=== PATIENT | male | born 1965 | race Caucasian/White ===

== ENCOUNTER 2017-02-10 07:50 | Inpatient (IN) | payer BC ==
[~2017-02-10] VITALS: Ht 180.3 cm; Wt 74.8 kg
--- NOTE | 2017-02-10 07:50 | NUR ---
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 PUT ON HOSPITAL GOWN AND MONITOR. BLOOD SAMPLE SENT TO LAB, EKG DONE, MD AT BEDSIDE.
[2017-02-10 08:15] LABS: BASOPHILS # (AUTO) 0.1 /CMM (0.0-0.2); BASOPHILS % (AUTO) 1.7 % (0.0-2.0); EOSINOPHILS # (AUTO) 0.1 /CMM (0.0-0.7); EOSINOPHILS % (AUTO) 1.3 % (0.0-6.0); HEMATOCRIT 46 % (39-51); HEMOGLOBIN 15.3 g/dL (13.5-17.5); LYMPHOCYTES # (AUTO) 2.2 /CMM (0.8-4.8); LYMPHOCYTES % (AUTO) 30.8 % (20.0-44.0); MEAN CORPUSCULAR HEMOGLOBIN 30 PG (26.0-33.0); MEAN CORPUSCULAR HGB CONC 34 g/dl (31.0-36.0); MEAN CORPUSCULAR VOLUME 89 fL (80-96); MONOCYTES # (AUTO) 0.7 /CMM (0.1-1.30); MONOCYTES % (AUTO) 10.3 % (2.0-12.0); NEUTROPHILS # (AUTO) 3.9 /CMM (1.8-8.9); NEUTROPHILS % (AUTO) 55.9 % (43.0-81.0); PLATELET COUNT (AUTO) 197 /CMM (150-450); RDW COEFFICIENT OF VARIATION 13.6 (11.5-15.0); RED BLOOD CELL COUNT(AUTO) 5.12 MIL/uL (4.5-6.0)
--- NOTE | 2017-02-10 08:15 | NUR ---
XRAY AT BS
[2017-02-10 08:29] LABS: CALCIUM, SERUM 9.1 mg/dL (8.5-10.1); CARBON DIOXIDE 28 mmol/L (21-32); CHLORIDE 103 mmol/L (98-107); CREATININE 1.3 mg/dL (0.6-1.3); GLUCOSE 165 mg/dL (74-106); INR 1.03 (0.87-1.13); POTASSIUM 3.7 mmol/L (3.5-5.1); PROTHROMBIN TIME 10.7 SECS (9.5-12.7); SODIUM SERUM 139 mmol/L (136-145); UREA NITROGEN, BLOOD 20 mg/dL (7-18)
[2017-02-10 08:38] LABS: TROPONIN I < 0.017 ng/mL (0.00-0.056)
[2017-02-10] MEDS ORDERED: ASPI81TA2 PO (08:38)
[2017-02-10] MEDS ORDERED: INSU100V27 SQ (08:38)
[2017-02-10] MEDS ORDERED: ATOR40TA PO (08:38)
[2017-02-10] MEDS ORDERED: INSU100V7 SQ (08:38)
[2017-02-10] MEDS ORDERED: BLOO-668 IN (08:38)
--- NOTE | 2017-02-10 09:56 | NUR ---
REPORT GIVEN TO JULIANNA LIPSCOMB.
--- NOTE | 2017-02-10 10:15 | NUR ---
TELE/CHIEF CONTROLLER RECEIVED PATIENT FROM ER, TRANSFERRED VIA BED. A/O X4. NO SIGNS OF ACUTE DISTRESS. NO COMPLAIN OF PAIN OR DISCOMFORT AT THIS TIME. NOTED INTACT SKIN CONDITION. NO S/S OF EDEMA NOTED. REPORT GIVEN BY ALVERTO LEVINE FROM ER. ALL NEEDS ATTENDED TO AT THIS TIME. CALL LIGHT WITHIN REACH. WILL CONTINUE TO MONITOR TO ENSURE SAFETY.
[2017-02-10 10:30] VITALS: BP 128/72
[2017-02-10 16:00] VITALS: BP 130/76
--- NOTE | 2017-02-10 18:07 | NUR ---
MS/RN CLOSING NOTE PATIENT IN BED IN STABLE CONDITION. A/O X 4. NO SIGNS OF ACUTE DISTRESS. NO COMPLAIN OF PAIN OR DISCOMFORT. ALL NEEDS ATTENDED TO. CALL LIGHT WITHIN REACH. WILL ENDORSE TO NEXT SHIFT FOR CONTINUITY OF CARE.
[2017-02-10 20:00] VITALS: BP 126/76
--- NOTE | 2017-02-10 21:04 | NUR ---
MS RN NOTES PT REQUESTING FOR HIS LANTUS INSULIN. NOTIFIED PT DR. GOYAL HELD HIS INSULIN. CALLED PEPPER DIRECTOR OF EVENT MANAGEMENT CIVIL STRUCTURAL ENGINEER FOR DR GOYAL. VERIFIED WITH HIM RE PT'S LANTUS INSULIN. WITH NEW ORDERS TO CONTINUE HIS LANTUS INSULIN & PT MAY TAKE HIS OWN INSULIN WHILE IN THE HOSPITAL. ORDERS NOTED AND CARRIED OUT. WILL CONTINUE TO MONITOR.
[2017-02-11] VITALS (7 sets, daily range): BP systolic 130–153; BP diastolic 68–89
--- NOTE | 2017-02-11 06:52 | NUR ---
DISTANCE EDUCATION FACULTY LIAISON NOTES AWAKE & RESPONSIVE. NOT IN ANY DISTRESS. NO SOB NOTED. DENIES ANY PAIN OR DISCOMFORT AT THIS TIME. IN TELE SB @ 56 WITH IVF INFUSING WELL. MONITORED ACCORDINGLY. CALL LIGHT WITHIN REACH. BED IN LOWEST POSITION. SITTER AT BEDSIDE. SR UP X2 FOR SAFETY. WILL ENDORSE TO NEXT SHIFT.
--- NOTE | 2017-02-11 07:00 | NUR ---
MANAGER SOURCING NOTES RECEIVED PATIENT IN BED, AWAKE. A/O X4. ON TELE MONITOR SINUS RHYTHM HR 65, APPEARS COMFORTABLE IN BED. DENIES CHEST PAIN. IV NS INFUSING AT 75ML/HR, TOLERATING WELL, NO SOB. CALL LIGHT WITHIN REACH. WILL CONT TO MONITOR.
[2017-02-11 07:30] LABS: BASOPHILS # (AUTO) 0.1 /CMM (0.0-0.2); BASOPHILS % (AUTO) 0.8 % (0.0-2.0); EOSINOPHILS # (AUTO) 0.1 /CMM (0.0-0.7); EOSINOPHILS % (AUTO) 0.8 % (0.0-6.0); HEMATOCRIT 41 % (39-51); HEMOGLOBIN 13.8 g/dL (13.5-17.5); LYMPHOCYTES # (AUTO) 1.1 /CMM (0.8-4.8); MEAN CORPUSCULAR HEMOGLOBIN 30 PG (26.0-33.0); MEAN CORPUSCULAR HGB CONC 34 g/dl (31.0-36.0); MEAN CORPUSCULAR VOLUME 89 fL (80-96); MONOCYTES # (AUTO) 0.7 /CMM (0.1-1.30); MONOCYTES % (AUTO) 8.5 % (2.0-12.0); NEUTROPHILS % (AUTO) 75.9 % (43.0-81.0); PLATELET COUNT (AUTO) 171 /CMM (150-450); RDW COEFFICIENT OF VARIATION 13.5 (11.5-15.0); RED BLOOD CELL COUNT(AUTO) 4.55 MIL/uL (4.5-6.0); WHITE BLOOD COUNT (AUTO) 7.9 K/uL (4.3-11.0)
[2017-02-11 07:56] LABS: CALCIUM, SERUM 8.3 mg/dL (8.5-10.1); CREATININE 1.1 mg/dL (0.6-1.3); MAGNESIUM 1.7 mg/dL (1.8-2.4); PHOSPHORUS 3.2 mg/dL (2.5-4.9); POTASSIUM 4.1 mmol/L (3.5-5.1)
--- NOTE | 2017-02-11 12:20 | NUR ---
BLOOD SUGAR 222MG/DL. PER PATIENT HE SELF ADMINISTERED HIS INSULIN INJECTION, INFORMED DR. GOYAL, WITH ORDERS NOTED AND ACKNOWLEDGED.
--- NOTE | 2017-02-11 17:40 | NUR ---
FSBS 50MG/DL. PATIENT IS AWAKE, A/O X3. NO C/O DIZZINESS, SKIN WARM, NOT CLAMMY. NO TREMORS NOTED. OFFERS ORANGE JUICE AND EDUCATE PATIENT ABOUT D50 INJECTION ADMINISTRATION, PATIENT REFUSED, PER PATIENT HE WILL HAVE HIS DINNER NOW AND STARTED EATING HIS MEAL. WILL RE CHECK BLOOD SUGAR.
--- NOTE | 2017-02-11 18:56 | NUR ---
SOFTWARE INSTALLATION ENGINEER CLOSING NOTES PATIENT IN BED, A/O X4. ON ROOM AIR, TOLERATING WELL, NO SOB. ON TELE MONITOR SINUS RHYTHM HR 76, NO EPISODE OF CHEST PAIN DURING THE SHIFT. PATIENT HAS GOOD APPETITE, REPEAT BS 176MG/DL. MAGNESIUM SUPPLEMENTED. PATIENT WILL BE NPO MN, FOR LEXISCAN IN AM. PATIENT CONSENTED THE PROCEDURE, CONSENT FORM PLACE IN THE CHART. CALL LIGHT WITHIN REACH. WILL ENDORSE TO TITLE CLERK RN FOR CONTINUITY OF CARE.
--- NOTE | 2017-02-11 19:35 | NUR ---
CATEGORY DEVELOPMENT MANAGER NOTE RECEIVED PATIENT FROM DAY SHIFT, PATIENT IS ALERT AND ORIENTEDX4, AMBULATORY, DENIES RESPIRATORY DISTRESS OR PAIN AT THIS TIME. IV ON LEFT AC IS PATENT AND INTACT, REFUSED TO CONNECT TO NS FLUID SINCE PATIENT IS DRINKING A LOT OF WATER BY HIMSELF. TELE MONITOR SR 70. SRX2, BED IN LOW POSITION, CALL LIGHT WITHIN REACH, WILL CONTINUE TO MONITOR PATIENT.
--- NOTE | 2017-02-11 21:50 | NUR ---
POPCORN ATTENDANT NOTE PATIENT'S BS IS 158MG/DL, PATIENT CONTROLS HIS INSULIN DOSE, MD AWARE OF IT. REFUSED TO GET LEVEMIR 10 UNITS TONIGHT.
[2017-02-12] VITALS: BP 131/77
[2017-02-12 04:00] VITALS: BP 121/73
--- NOTE | 2017-02-12 05:57 | NUR ---
CITY WELLNESS COORDINATOR NOTE PATIENT'S BS IS 177, CURRENTLY ON NPO STATUS FOR STRESS TEST. NO INSULIN COVERAGE AT THIS TIME.
[2017-02-12 06:00] VITALS: BP 126/71
--- NOTE | 2017-02-12 06:47 | NUR ---
SPECIAL OFFICER AUTOMAT NOTE PATIENT IS RESTING IN BED COMFORTABLY, DENIES CHEST PAIN OR RESPIRATORY DISTRESS AT THIS TIME. IV ON LEFT AC IS PATENT AND INTACT, REFUSED TO CONNECT TO FLUID. BS THIS MORNING WAS 177, CURRENTLY ON NPO STATUS FOR STRESS TEST. DID NOT COVER INSULIN. TELE MONITOR SB 54. WILL ENDORSE TO DAY SHIFT NURSE FOR KEON.
--- NOTE | 2017-02-12 07:10 | NUR ---
MOUNTING INSPECTOR NOTES RECEIVED PATIENT IN BED, AWAKE. A/O X4. ON TELE MONITOR SINUS YESSI HR 54. ON NPO STATUS, FOR NM MYOCARDIAL STRESS TEST TODAY, PATIENT IS AWARE. IV LEFT AC G20 PATENT AND INTACT, FLUSHES WELL. CALL LIGHT WITHIN REACH. WILL CONT TO MONITOR.
[2017-02-12 07:36] LABS: CALCIUM, SERUM 8.1 mg/dL (8.5-10.1); POTASSIUM 3.8 mmol/L (3.5-5.1)
[2017-02-12 08:00] VITALS: BP 126/71
[2017-02-12 08:59] VITALS: BP 126/71
[2017-02-12] MEDS ORDERED: LISI-603 PO (13:01)
--- NOTE | 2017-02-12 13:02 | NUR ---
FSBS NON ADMINISTERED. POST LEXISCAN PROCEDURE. PATIENT HAD HIS LUNCH. PER PATIENT HE ALREADY CHECKED HIS BLOOD SUGAR AND HE WILL INJECT HIS OWN INSULIN.
--- NOTE | 2017-02-12 13:29 | NUR ---
PATIENT TO BE DISCHARGED HOME ORDERED.
--- NOTE | 2017-02-12 16:30 | NUR ---
MS RN DISCHARGED PATIENT HAS BEEN CLEARED FOR DISCHARGE HOME BY MD. NO EPISODE OF CHEST PAIN DURING THE SHIFT. SKIN INTACT, IV IN LEFT AC REMOVED, GAUZE APPLIED, NO BLEEDING. DISCHARGE INSTRUCTION GIVEN TO THE PATIENT, VERBALIZED UNDERSTANDING. PATIENT IS AWARE TO FOLLOW UP WITH HIS PRIMARY MD IN 1 WEEK. V/S WNL. PATIENT LEFT HOSP IN STABLE CONDITION VIA PRIVATE CAR ACCOMPANIED BY HIS . BELONGINGS CHECKED PRIOR DC.
== END 2017-02-12 16:15 | disposition home or self-care (01) | DRG 392 ==
LOC: ER 07:54 → TELE 09:19 → MED 02-12 13:09
PROVIDERS: ADMIT Internal Medicine; ATTEND Internal Medicine
DX: K21.9 Gastro-esophageal reflux disease without esophagitis (principal); E10.9 Type 1 diabetes mellitus without complications; E78.5 Hyperlipidemia, unspecified; I10 Essential (primary) hypertension; Z79.4 Long term (current) use of insulin; Z82.49 Family history of ischemic heart disease and other diseases of the circulatory system; Z79.82 Long term (current) use of aspirin
CPT/HCPCS: 36415; 71010-TC; 80048-TC; 80061-TC; 82962-TC; 83735-TC; 84100-TC; 84484-TC; 85025-TC; 85730-TC; 87081-TC; 93307-TC; A4606; A9502; J1815; J2785; J3475; J7030; Z7610